=== PATIENT | male | born 1965 | race Caucasian/White ===

== ENCOUNTER 2017-11-21 13:18 | Inpatient (IN) | payer OTHER ==
[2017-11-21 14:30] VITALS: BMI 33.6
--- NOTE | 2017-11-21 15:03 | HP ---
CIWA Score - CIWA Score Nausea/Vomitin Muscle Tremors: 4-Moderate,w/Arms Extend Anxiety: 4-Mod. Anxious/Guarded Agitation: 3 Paroxysmal Sweats: 3 Orientation: 0-Oriented Tacttile Disturbances: 0-None Auditory Disturbances: 0-None Visual Disturbances: 0-None Headache: 0-None Present CIWA-Ar Total Score: 17 Admission ROS BHS - HPI Chief Complaint: "I want to get off the pills" Allergies/Adverse Reactions: Allergies Allergy/AdvReac Type Severity Reaction Status Date / Time No Known Allergies Allergy Verified 05/13/16 18:47 History of Present Illness: 52 y/o male with a long hx of substance use here today seeking detox from xanax, clonopin. On a methadone program - [facility] - on 90mg. Last time pt was here was 2005, states longer soberiety period has been 6 months. Hx of HTN, High cholesterol, Stroke x 2015 with residual weakness to the R side , ambulates with a cane, depression. Denies prior nor present S.I. Exam Limitations: Clinical Condition, Physical Impairment - Ebola screening Have you traveled outside of the country in the last 21 days: No Have you had contact with anyone from an Ebola affected area: No Have you been sick,other than usual withdrawal symptoms: No Do you have a fever: No - Review of Systems Constitutional: Unintentional Wgt. Loss EENT: reports: Blurred Vision (Diminished vision in the R eye s/p CVA), Dental Problems (Missing all teeth - Does not have his dentures on him) Respiratory: reports: Cough (Dry cough) Cardiac: reports: No Symptoms Reported, Palpitations GI: reports: Abdominal Distended (Non tender) : reports: No Symptoms Reported Musculoskeletal: reports: Other (Weak on R side, ambulates with a cane) Integumentary: reports: No Symptoms Reported Neuro: reports: Seizure (One time only maybe 20 years ago per pt), Weakness, Unsteady Gait Endocrine: reports: No Symptoms Reported Hematology: reports: No Symptoms Reported Psychiatric: reports: Orientated x3, Anxious Other Systems: Reviewed and Negative Patient History - Patient Medical History Hx Anemia: No Hx Asthma: No Hx Chronic Obstructive Pulmonary Disease (COPD): No Hx Cancer: No Hx Cardiac Disorders: No Hx Congestive Heart Failure: No Hx Hypertension: Yes (On meds, but does not remember the name) Hx Hypercholesterolemia: Yes (On med, he does not remember) Hx Pacemaker: No HX Cerebrovascular Accident: Yes (2016 with residual weakness) Hx Seizures: Yes (once 10 years ago) Hx Dementia: No Hx Diabetes: Yes Hx Gastrointestinal Disorders: No Hx Liver Disease: Yes (Hep C, states his titres are not detectable; never treated) Hx Genitourinary Disorders: No Hx Sexually Transmitted Disorders: No Hx Renal Disease (ESRD): No Hx Thyroid Disease: No Hx Human Immunodeficiency Virus (HIV): No (tested negative 2 years ago) Hx Hepatitis C: Yes (not treated) Hx Depression: Yes (On seroquel) Hx Suicide Attempt: No Hx Bipolar Disorder: No Hx Schizophrenia: No - Patient Surgical History Past Surgical History: Yes Other Surgical History: Spine surgery, unsure when - in the 's Anesthesia Reaction: No - PPD History Documented Results: Negative w/o proof PPD to be Administered?: Yes - Reproductive History Patient is a Female of Child Bearing Age (11 -55 yrs old): No - Smoking Cessation Smoking history: Current every day smoker Have you smoked in the past 12 months: Yes Aproximately how many cigarettes per day: 10 Hx Chewing Tobacco Use: No Initiated information on smoking cessation: Yes 'Breaking Loose' booklet given: 11/21/17 - Substance & Tx. History Hx Alcohol Use: No Substance Use Type: Tranquilizers Hx Substance Use Treatment: Yes - Substances Abused Alprazolam (Xanax) Route: Oral Frequency: Daily Amount used: 8mg (4 tablets) Age of first use: 22 Date of Last Use: 11/21/17 Benzodiazepine (Klonopin) Frequency: 1-2 times per week Amount used: 6 Age of first use: 16 Date of Last Use: 11/21/17 Family Disease History - Family Disease History Family History: Unremarkable Admission Physical Exam BHS - Vital Signs Vital Signs: Vital Signs - 24 hr 11/21/17 14:27 Temperature 97.6 F Pulse Rate 79 Respiratory 18 Rate Blood Pressure 136/87 - Physical General Appearance: Yes: Moderate Distress, Other (sleepy) HEENTM: Yes: Within Normal Limits, Other (Missing teeth; wears dentures but does not have it on him at this visit) Respiratory: Yes: No Respiratory Distress Neck: Yes: Within Normal Limits, No masses,lesions,Nodules, Trachea in good position Breast: Yes: Breast Exam Deferred Cardiology: Yes: Regular Rate Abdominal: Yes: Normal Bowel Sounds, Non Tender, Distended Genitourinary: Yes: Within Normal Limits Back: Yes: Normal Inspection Musculoskeletal: Yes: Muscle weakness, Other (ambulates with a walker) Extremities: Yes: Within Normal Limits, Normal Capillary Refill Neurological: Yes: Fully Oriented, Alert, Normal Response Integumentary: Yes: Dry, Warm Lymphatic: Yes: Within Normal Limits - Diagnostic (1) Walker as ambulation aid Current Visit: Yes Status: Acute (2) Nicotine dependence Current Visit: Yes Status: Acute (3) Pneumonia Current Visit: No Status: Acute Qualifiers: Pneumonia type: due to unspecified organism Laterality: bilateral Lung location: unspecified part of lung Qualified Code(s): J18.9 - Pneumonia, unspecified organism (4) HTN (hypertension) Current Visit: No Status: Chronic (5) Sedative, hypnotic or anxiolytic dependence with withdrawal, uncomplicated Current Visit: No Status: Chronic (6) Substance abuse Current Visit: No Status: Chronic Cleared for Admission [facility] - Detox or Rehab [facility] Level of Care: Medically Managed Detox Regimen/Protocol: Valium [facility] Breath Alcohol Content Breath Alcohol Content: 0 Urine Drug Screen - Results Drug Screen Negative: No Urine Drug Screen Results: THC-Marijuana, OPI-Opiates, BZO-Benzodiazepines, MTD- Methadone, TCA-Tricyclic Antidepress
[2017-11-21] MEDS ORDERED: guaiFENesin/D-METHORPHAN HB 10 ML UNIT-DOSE CUPS PO PRN (15:34)
[2017-11-21] MEDS ORDERED: ACETAMINOPHEN 325 MG TABLET (FP) PO PRN (15:34)
[2017-11-21] MEDS ORDERED: MAG HYDROX/AL HYDROX/SIMETH 30 ML UNIT-DOSE CUP PO PRN (15:34)
[2017-11-21] MEDS ORDERED: LOPERAMIDE HCL 2 MG CAPSULE PO PRN (15:34)
[2017-11-21] MEDS ORDERED: P-EPHED 60MG/TRIPROLIDI 2.5MG TABLET PO PRN (15:34)
[2017-11-21] MEDS ORDERED: MAGNESIUM CITRATE 300 ML BOTTLE PO PRN (15:34)
[2017-11-21] MEDS ORDERED: MENTHOL/PHENOL 1 EACH UD MM PRN (15:34)
[2017-11-21] MEDS ORDERED: IBUPROFEN 400 MG TABLET (FP) PO PRN (15:34)
[2017-11-21] MEDS ORDERED: MAGNESIUM HYDROX 2400MG/30ML ORAL SUSPENSION 30 ML CUP PO PRN (15:34)
[2017-11-21] MEDS ORDERED: NICOTINE POLACRILEX 2 MG GUM BC PRN (15:34)
--- NOTE | 2017-11-21 16:09 | PN ---
[facility] Progress Note Note: Pt stated he got today's dose at his methadone program earlier today. Was informed that his dose tomorrow is dependent on verification since the center was closed at the time of his admission here and DEE Alvares was unable to reach anyone at the center. Pt verbalized understanding
[2017-11-21] MEDS ORDERED: diazePAM 5 MG TABLET PO ONE (16:30)
[2017-11-21] MEDS: NICOTINE 14 MG/24 HOURS TOPICAL PATCH TD SCH (17:27)
[2017-11-21] MEDS ORDERED: MELATONIN 5 MG TABLETS PO PRN (22:00)
[2017-11-21] MEDS: THIAMINE HCL 100 MG TABLET (FP) PO SCH (22:11)
[2017-11-21] MEDS: diazePAM 5 MG TABLET PO SCH (22:11)
[2017-11-21 23:11] LABS: URINE APPEARANCE CLEAR; URINE BILIRUBIN NEGATIVE (<2.0 mg/dL); URINE COLOR AMBER; URINE GLUCOSE (UA) NEGATIVE (NEGATIVE); URINE KETONE NEGATIVE (NEGATIVE); URINE LEUK ESTERASE TRACE (NEGATIVE); URINE NITRITE NEGATIVE (NEGATIVE)
[2017-11-21 23:12] LABS: URINE PROTEIN 1+ (NEGATIVE)
[2017-11-21 23:18] LABS: URINE MUCUS FEW
[2017-11-22] MEDS: diazePAM 5 MG TABLET PO SCH ×3 (05:28→22:11)
[2017-11-22] MEDS ORDERED: METHADONE HCL 10 MG TABLET PO ONE (08:49)
[2017-11-22] MEDS ORDERED: METHADONE 80 MG, METHADONE 10 MG PO ONE (09:00)
[2017-11-22] MEDS ORDERED: METHADONE HCL 10 MG TABLET ONE (09:06)
[2017-11-22] MEDS ORDERED: METHADONE HCL 40 MG DISPERSABLE TABLET ONE (09:08)
--- NOTE | 2017-11-22 09:08 | CONSULT ---
[facility] Psychiatric Consult - Data Date of interview: 11/22/17 Admission source: [facility] Identifying data: Patient is a 52 year old single male, domiciled without kids, disabled and supported by SSI benefits. This is one of multiple admissions for patient. Pt. admitted to for opioid and benzodiazepine dependence. Substance Abuse History: Smoking Cessation. Smoking history: Current every day smoker. Have you smoked in the past 12 months: Yes. Aproximately how many cigarettes per day: 10. Hx Chewing Tobacco Use: No. Initiated information on smoking cessation: Yes. 'Breaking Loose' booklet given: 11/21/17. - Substance & Tx. History. Hx Alcohol Use: No. Substance Use Type: Tranquilizers. Hx Substance Use Treatment: Yes. - Substances Abused. Alprazolam (Xanax). Route: Oral. Frequency: Daily. Amount used: 8mg (4 tablets). Age of first use : 22. Date of Last Use: 11/21/17. Benzodiazepine (Klonopin). Frequency: 1- 2 times per week. Amount used: 6. Age of first use: 16. Date of Last Use: Medical History: hypertension, hypercholesterolemia, Hep C, spinal surgery Psychiatric History: Patient reports multiple psychiatric hospitalizations, most recently at [facility] five years ago. States all of his psychiatrich hospitalizations have occured at [facility]. [facility] is provided in the [place], [place]. Pt. reports taking seroquel 200mg qhs. Pt. denies h/o suicide attempt. Physical/Sexual Abuse/Trauma History: Denies. Mental Status Exam - Mental Status Exam Alert and Oriented to: Time, Place, Person Cognitive Function: Good Patient Appearance: Well Groomed Mood: Euthymic Affect: Mood Congruent Patient Behavior: Cooperative Speech Pattern: Appropriate Voice Loudness: Moderately Soft/Quiet Thought Process: Goal Oriented Thought Disorder: Not Present Hallucinations: Denies Suicidal Ideation: Denies Homicidal Ideation: Denies Insight/Judgement: Poor Sleep: Poorly Appetite: Fair Muscle strength/Tone: Normal Gait/Station: Other (Patient ambulates with a walker.) Psychiatric Findings - Problem List ([place] 1, 2,3) (1) Substance induced mood disorder Current Visit: Yes Status: Acute (2) Nicotine dependence Current Visit: Yes Status: Acute Qualifiers: Nicotine product type: cigarettes Substance use status: in withdrawal Qualified Code(s): F17.213 - Nicotine dependence, cigarettes, with withdrawal (3) Sedative, hypnotic or anxiolytic dependence with withdrawal, uncomplicated Current Visit: Yes Status: Acute (4) HTN (hypertension) Current Visit: Yes Status: Chronic Qualifiers: Hypertension type: essential hypertension Qualified Code(s): I10 - Essential (primary) hypertension (5) Methadone maintenance therapy patient Current Visit: Yes Status: Chronic (6) Walker as ambulation aid Current Visit: Yes Status: Chronic - Initial Treatment Plan Initial Treatment Plan: Psychoeducation provided. Detoxification in progress. Will order seroquel 150mg qhs. Benefits and side effects discussed. Verbal consent given. Will continue to monitor.
[2017-11-22] MEDS: diazePAM 5 MG TABLET PO PRN ×2 (09:50→17:24)
[2017-11-22] MEDS: NICOTINE 14 MG/24 HOURS TOPICAL PATCH TD SCH (09:51)
[2017-11-22] MEDS: PRENATAL VITAMINS W/ FOLIC ACID TABLET (FP) PO SCH (09:52)
[2017-11-22 10:12] LABS: HEMATOCRIT 40.1 % (35.4-49); HEMOGLOBIN 13.2 GM/dL (11.7-16.9); MCH 29.7 pg (25.7-33.7); MCHC 32.8 g/dl (32.0-35.9); MEAN CELL VOLUME 90.6 fl (80-96); MEAN PLT VOLUME 11.1 fl (7.5-11.1); PLATELET COUNT 168 K/MM3 (134-434); RBC 4.43 M/mm3 (4.00-5.60); RDW 14.7 % (11.9-15.9)
[2017-11-22 10:16] LABS: CHLORIDE 101 mmol/L (98-107); POTASSIUM 4.4 mmol/L (3.5-5.1); SODIUM 139 mmol/L (136-145)
[2017-11-22] MEDS ORDERED: cloNIDine HCL 0.1 MG TABLET PO ONE (10:17)
--- NOTE | 2017-11-22 10:50 | PN ---
S CIWA - CIWA Score Nausea/Vomitin-No Nausea/No Vomiting Muscle Tremors: 5 Anxiety: 5 Agitation: 4-Moderately Restless Paroxysmal Sweats: 1-Minimal Palms Moist Orientation: 0-Oriented Tacttile Disturbances: 0-None Auditory Disturbances: 0-None Visual Disturbances: 0-None Headache: 0-None Present CIWA-Ar Total Score: 15 BHS Progress Note (SOAP) Subjective: ANXIETY,IRRITABILITY,AGITATIONS. OOB AMBULATING WITH WALKER. PT REPORTS HE TAKES BP MED BUT DOES NOT REMEMBER THE NAMES. PT IS VERY AGITATED WHEN ASKED FOR ANY LEADS TO HELP STAFF FIND INFORMATION ABOUT HIS MEDS. Objective: 11/22/17 10:49 Vital Signs 11/22/17 11/22/17 05:47 10:09 Temperature 97.3 F L 97.2 F L Pulse Rate 47 L 54 L Respiratory 18 18 Rate Blood Pressure 127/79 168/95 Laboratory Tests 11/21/17 11/22/17 11/22/17 Unknown 07:00 07:00 WBC 8.0 D RBC 4.43 D Hgb 13.2 D Hct 40.1 D MCV 90.6 MCH 29.7 MCHC 32.8 RDW 14.7 Plt Count 168 D MPV 11.1 Sodium 139 Potassium 4.4 Chloride 101 Urine Color Annamaria Urine Appearance Clear Urine pH 5.0 D Ur Specific [place] 1.026 Urine Protein 1+ H Urine Glucose (UA) Negative Urine Ketones Negative Urine Blood Negative Urine Nitrite Negative Urine Bilirubin Negative Urine Urobilinogen 2.0 Ur Leukocyte Esterase Trace Urine WBC (Auto) 1 Urine RBC (Auto) None Urine Mucus Few OTHER LABSPENDING Assessment: 11/22/17 10:49 WITHDRAWAL SX Plan: CONTINUE DETOX CLONIDINE 0.1 MG PO ONCE GIVEN FOR ELEVATED BP
[2017-11-22 10:55] LABS: ALK PHOS 231 U/L (45-117); ANION GAP 9 (8-16); BILIRUBIN,TOTAL 0.4 mg/dL (0.2-1.0); BLOOD UREA NITROGEN 18 mg/dL (7-18); CALCIUM 9.2 mg/dL (8.5-10.1); CO2 29 mmol/L (21-32); CREATININE 0.9 mg/dL (0.7-1.3); GLUCOSE,RANDOM 119 mg/dL (74-106); SGOT/AST 150 U/L (15-37); SGPT/ALT 146 U/L (12-78); TOT PROT 7.3 g/dl (6.4-8.2)
[2017-11-22] MEDS ORDERED: cloNIDine HCL 0.1 MG TABLET PO PRN (13:09)
[2017-11-22] MEDS: amLODIPine BESYLATE 10 MG TABLET (FP) PO SCH (14:19)
--- NOTE | 2017-11-22 14:19 | EKG ---
Test Reason : Blood Pressure : / mmHG Vent. Rate : 055 BPM Atrial Rate : 055 BPM P-R Int : 136 ms QRS Dur : 090 ms QT Int : 440 ms P-R-T Axes : 030 040 045 degrees QTc Int : 420 ms SINUS BRADYCARDIA OTHERWISE NORMAL ECG WHEN COMPARED WITH ECG OF 17-MAY-2016 15:17, VENT. RATE HAS DECREASED BY 48 BPM Confirmed by MD Patel Edward ([id number]) on 11/22/2017 2:19:09 PM Referred By: Confirmed By:Boris Patel MD
[2017-11-22] MEDS: cloNIDine HCL 0.1 MG TABLET PO PRN (17:40)
[2017-11-22] MEDS: QUEtiapine FUMARATE 50 MG TABLET PO SCH (22:11)
[2017-11-22] MEDS: THIAMINE HCL 100 MG TABLET (FP) PO SCH (22:12)
[2017-11-23] MEDS ORDERED: METHADONE HCL 40 MG DISPERSABLE TABLET ONE (04:31)
[2017-11-23] MEDS ORDERED: METHADONE HCL 10 MG TABLET ONE (04:31)
[2017-11-23] MEDS: METHADONE 80 MG, METHADONE 10 MG PO SCH (05:37)
[2017-11-23] MEDS: diazePAM 5 MG TABLET PO PRN ×2 (05:37→14:52)
[2017-11-23] MEDS ORDERED: METHADONE HCL 10 MG TABLET PO SCH (06:00)
[2017-11-23] MEDS: amLODIPine BESYLATE 10 MG TABLET (FP) PO SCH (10:21)
[2017-11-23] MEDS: PRENATAL VITAMINS W/ FOLIC ACID TABLET (FP) PO SCH (10:21)
[2017-11-23] MEDS: diazePAM 5 MG TABLET PO SCH ×2 (10:21→22:09)
[2017-11-23] MEDS: NICOTINE 14 MG/24 HOURS TOPICAL PATCH TD SCH (10:21)
--- NOTE | 2017-11-23 11:02 | PN ---
S CIWA - CIWA Score Nausea/Vomitin-No Nausea/No Vomiting Muscle Tremors: 4-Moderate,w/Arms Extend Anxiety: 4-Mod. Anxious/Guarded Agitation: 4-Moderately Restless Paroxysmal Sweats: 1-Minimal Palms Moist Orientation: 0-Oriented Tacttile Disturbances: 0-None Auditory Disturbances: 0-None Visual Disturbances: 0-None Headache: 0-None Present CIWA-Ar Total Score: 13 BHS Progress Note (SOAP) Subjective: ANXIETY,SWEATS, IRRITABILITY. Objective: 11/23/17 11:01 Vital Signs 11/23/17 11/23/17 11/23/17 03:30 06:26 09:44 Temperature 97.2 F L 97.6 F Pulse Rate 52 L 59 L Respiratory 18 16 18 Rate Blood Pressure 104/64 107/59 Laboratory Tests 11/21/17 11/22/17 11/22/17 Unknown 07:00 07:00 WBC 8.0 D RBC 4.43 D Hgb 13.2 D Hct 40.1 D MCV 90.6 MCH 29.7 MCHC 32.8 RDW 14.7 Plt Count 168 D MPV 11.1 Sodium 139 Potassium 4.4 Chloride 101 Carbon Dioxide 29 Anion Gap 9 BUN 18 Creatinine 0.9 D Creat Clearance w eGFR > 60 Random Glucose 119 H Calcium 9.2 Total Bilirubin 0.4 AST 150 H D ALT 146 H Alkaline Phosphatase 231 H D Total Protein 7.3 D Albumin 4.0 D Urine Color Annamaria Urine Appearance Clear Urine pH 5.0 D Ur Specific [place] 1.026 Urine Protein 1+ H Urine Glucose (UA) Negative Urine Ketones Negative Urine Blood Negative Urine Nitrite Negative Urine Bilirubin Negative Urine Urobilinogen 2.0 Ur Leukocyte Esterase Trace Urine WBC (Auto) 1 Urine RBC (Auto) None Urine Mucus Few RPR Titer 11/22/17 07:00 WBC RBC Hgb Hct MCV MCH MCHC RDW Plt Count MPV Sodium Potassium Chloride Carbon Dioxide Anion Gap BUN Creatinine Creat Clearance w eGFR Random Glucose Calcium Total Bilirubin AST ALT Alkaline Phosphatase Total Protein Albumin Urine Color Urine Appearance Urine pH Ur Specific [place] Urine Protein Urine Glucose (UA) Urine Ketones Urine Blood Urine Nitrite Urine Bilirubin Urine Urobilinogen Ur Leukocyte Esterase Urine WBC (Auto) Urine RBC (Auto) Urine Mucus RPR Titer Nonreactive Assessment: 11/23/17 11:01 WITHDRAWAL SX Plan: CONTINUE DETOX
[2017-11-23] MEDS: QUEtiapine FUMARATE 50 MG TABLET PO SCH (22:09)
[2017-11-23] MEDS: THIAMINE HCL 100 MG TABLET (FP) PO SCH (22:09)
[2017-11-23] MEDS: cloNIDine HCL 0.1 MG TABLET PO PRN (22:12)
[2017-11-24] MEDS: diazePAM 5 MG TABLET PO PRN ×3 (00:44→13:05)
[2017-11-24] MEDS ORDERED: METHADONE HCL 10 MG TABLET ONE (02:44)
[2017-11-24] MEDS ORDERED: METHADONE HCL 40 MG DISPERSABLE TABLET ONE (02:44)
[2017-11-24] MEDS: METHADONE 80 MG, METHADONE 10 MG PO SCH (05:37)
[2017-11-24] MEDS: NICOTINE 14 MG/24 HOURS TOPICAL PATCH TD SCH (10:20)
[2017-11-24] MEDS: diazePAM 5 MG TABLET PO SCH ×2 (10:20→22:04)
[2017-11-24] MEDS: PRENATAL VITAMINS W/ FOLIC ACID TABLET (FP) PO SCH (10:20)
[2017-11-24] MEDS: amLODIPine BESYLATE 10 MG TABLET (FP) PO SCH (10:20)
--- NOTE | 2017-11-24 10:32 | PN ---
BHS Progress Note (SOAP) Subjective: PT C/O ANXIETY,LIGHTHEADED & CHILLS. SAW PT OOB ON HALLWAY AMBULATING WITH WALKER WITH STEADY GAIT Objective: 11/24/17 10:31 Vital Signs 11/24/17 11/24/17 06:22 09:25 Temperature 97.2 F L 98.4 F Pulse Rate 67 76 Respiratory 18 18 Rate Blood Pressure 123/82 120/72 Laboratory Tests 11/21/17 11/22/17 11/22/17 Unknown 07:00 07:00 WBC 8.0 D RBC 4.43 D Hgb 13.2 D Hct 40.1 D MCV 90.6 MCH 29.7 MCHC 32.8 RDW 14.7 Plt Count 168 D MPV 11.1 Sodium 139 Potassium 4.4 Chloride 101 Carbon Dioxide 29 Anion Gap 9 BUN 18 Creatinine 0.9 D Creat Clearance w eGFR > 60 Random Glucose 119 H Calcium 9.2 Total Bilirubin 0.4 AST 150 H D ALT 146 H Alkaline Phosphatase 231 H D Total Protein 7.3 D Albumin 4.0 D Urine Color Annamaria Urine Appearance Clear Urine pH 5.0 D Ur Specific [place] 1.026 Urine Protein 1+ H Urine Glucose (UA) Negative Urine Ketones Negative Urine Blood Negative Urine Nitrite Negative Urine Bilirubin Negative Urine Urobilinogen 2.0 Ur Leukocyte Esterase Trace Urine WBC (Auto) 1 Urine RBC (Auto) None Urine Mucus Few RPR Titer 11/22/17 07:00 WBC RBC Hgb Hct MCV MCH MCHC RDW Plt Count MPV Sodium Potassium Chloride Carbon Dioxide Anion Gap BUN Creatinine Creat Clearance w eGFR Random Glucose Calcium Total Bilirubin AST ALT Alkaline Phosphatase Total Protein Albumin Urine Color Urine Appearance Urine pH Ur Specific [place] Urine Protein Urine Glucose (UA) Urine Ketones Urine Blood Urine Nitrite Urine Bilirubin Urine Urobilinogen Ur Leukocyte Esterase Urine WBC (Auto) Urine RBC (Auto) Urine Mucus RPR Titer Nonreactive LIVER ENZYMES NOTED Assessment: 11/24/17 10:31 WITHDRAWAL SX Plan: CONTINUE DETOX REPEAT LFTS;INR INCREASE PO FLUIDS
[2017-11-24 14:12] LABS: ALBUMIN 3.9 g/dl (3.4-5.0); BILIRUBIN,DIRECT 0.2 mg/dL (0.0-0.2); BILIRUBIN,TOTAL 0.3 mg/dL (0.2-1.0); TOT PROT 7.1 g/dl (6.4-8.2)
[2017-11-24 14:24] LABS: INR 1.01 (0.82-1.09); PROTHROMBIN TIME (PATIENT) 11.4 SEC (9.7-13.0)
[2017-11-24] MEDS: hydrOXYzine PAMOATE 50 MG CAPSULE (FP) PO PRN ×2 (16:47→22:04)
[2017-11-24] MEDS: THIAMINE HCL 100 MG TABLET (FP) PO SCH (22:04)
[2017-11-24] MEDS: QUEtiapine FUMARATE 50 MG TABLET PO SCH (22:05)
[2017-11-25] MEDS ORDERED: METHADONE HCL 10 MG TABLET ONE (05:25)
[2017-11-25] MEDS ORDERED: METHADONE HCL 40 MG DISPERSABLE TABLET ONE (05:25)
[2017-11-25] MEDS: METHADONE 80 MG, METHADONE 10 MG PO SCH (05:26)
[2017-11-25 06:06] VITALS: BP 143/93; PULSE 80; TEMP 96.8
[2017-11-25] MEDS ORDERED: diazePAM 5 MG TABLET PO SCH (10:00)
--- NOTE | 2017-11-25 18:20 | PN ---
B[facility] Progress Note (SOAP) Subjective: Patient left Detox unit prior to time of arrival of SPINNING ROOM WORKER. Objective: 11/25/17 18:19 Vital Signs Temperature 96.8 F L 11/25/17 06:06 Pulse Rate 80 11/25/17 06:06 Respiratory Rate 18 11/25/17 06:06 Blood Pressure 143/93 11/25/17 06:06 O2 Sat by Pulse Oximetry (%) Laboratory Tests 11/21/17 11/22/17 11/22/17 Unknown 07:00 07:00 WBC 8.0 D RBC 4.43 D Hgb 13.2 D Hct 40.1 D MCV 90.6 MCH 29.7 MCHC 32.8 RDW 14.7 Plt Count 168 D MPV 11.1 PT with INR INR Sodium 139 Potassium 4.4 Chloride 101 Carbon Dioxide 29 Anion Gap 9 BUN 18 Creatinine 0.9 D Creat Clearance w eGFR > 60 Random Glucose 119 H Calcium 9.2 Total Bilirubin 0.4 Direct Bilirubin AST 150 H D ALT 146 H Alkaline Phosphatase 231 H D Total Protein 7.3 D Albumin 4.0 D Urine Color Annamaria Urine Appearance Clear Urine pH 5.0 D Ur Specific [place] 1.026 Urine Protein 1+ H Urine Glucose (UA) Negative Urine Ketones Negative Urine Blood Negative Urine Nitrite Negative Urine Bilirubin Negative Urine Urobilinogen 2.0 Ur Leukocyte Esterase Trace Urine WBC (Auto) 1 Urine RBC (Auto) None Urine Mucus Few RPR Titer 11/22/17 11/24/17 11/24/17 07:00 11:00 11:00 WBC RBC Hgb Hct MCV MCH MCHC RDW Plt Count MPV PT with INR 11.40 INR 1.01 Sodium Potassium Chloride Carbon Dioxide Anion Gap BUN Creatinine Creat Clearance w eGFR Random Glucose Calcium Total Bilirubin 0.3 D Direct Bilirubin 0.2 AST 418 H D ALT 438 H D Alkaline Phosphatase 262 H Total Protein 7.1 Albumin 3.9 Urine Color Urine Appearance Urine pH Ur Specific [place] Urine Protein Urine Glucose (UA) Urine Ketones Urine Blood Urine Nitrite Urine Bilirubin Urine Urobilinogen Ur Leukocyte Esterase Urine WBC (Auto) Urine RBC (Auto) Urine Mucus RPR Titer Nonreactive LABS NOTED. Assessment: 11/25/17 18:19 COMPLETION OF DETOX REGIMEN. Plan: PATIENT SCHEDULED FOR DISCHARGE FROM DETOX UNIT TODAY.
--- NOTE | 2017-11-25 18:23 | DS ---
[facility] Detox Discharge Summary Admission Date: 11/21/17 Discharge Date: 11/25/17 - History Present History: Sedative Dependence Additional Comments: PATIENT RETURNING TO [facility] ([place] FOR AFTERCARE. PATIENT ALSO ADVISED TO CONSIDER LOCAL 12-STEP/NA/AA OUTPATIENT SUPPORT GROUPS PROGRAMS FOR AFTERCARE. YESTERDAY, IN PREPARATION FOR DISCHARGE TODAY, PATIENT WAS ADVISED TO FOLLOW-UP WITH HIS HOOP DRIVING MACHINE OPERATOR HELPER DR. Jessica CARTY ([facility]) AFTER DISCHARGE FROM DETOX FOR GENERAL MEDICAL ASSESSMENT AND FOR ABNORMAL LIVER ENZYME LAB RESULTS DRAWN WHILE PATIENT WAS ADMITTED FOR DETOX. COPIES OF RESULTS ALL LABS DRAWN WHILE ADMITTED FOR DETOX GIVEN TO PATIENT PRIOR TO TIME OF DISCHARGE FROM DETOX UNIT. Pertinent Past History: HTN, Hypercholesterolemia, History of Hep C (untreated), Use of walker As Ambulatory Aid, History of Pneumonia, History of DM, History of CVA, History of Seizure, MMTP. - Physical Exam Results Vital Signs: Vital Signs Temperature 96.8 F L 11/25/17 06:06 Pulse Rate 80 11/25/17 06:06 Respiratory Rate 18 11/25/17 06:06 Blood Pressure 143/93 11/25/17 06:06 O2 Sat by Pulse Oximetry (%) Pertinent Admission Physical Exam Findings: WITHDRAWAL SYMPTOMS. Laboratory Tests 11/21/17 11/22/17 11/22/17 Unknown 07:00 07:00 WBC 8.0 D RBC 4.43 D Hgb 13.2 D Hct 40.1 D MCV 90.6 MCH 29.7 MCHC 32.8 RDW 14.7 Plt Count 168 D MPV 11.1 PT with INR INR Sodium 139 Potassium 4.4 Chloride 101 Carbon Dioxide 29 Anion Gap 9 BUN 18 Creatinine 0.9 D Creat Clearance w eGFR > 60 Random Glucose 119 H Calcium 9.2 Total Bilirubin 0.4 Direct Bilirubin AST 150 H D ALT 146 H Alkaline Phosphatase 231 H D Total Protein 7.3 D Albumin 4.0 D Urine Color Annamaria Urine Appearance Clear Urine pH 5.0 D Ur Specific [place] 1.026 Urine Protein 1+ H Urine Glucose (UA) Negative Urine Ketones Negative Urine Blood Negative Urine Nitrite Negative Urine Bilirubin Negative Urine Urobilinogen 2.0 Ur Leukocyte Esterase Trace Urine WBC (Auto) 1 Urine RBC (Auto) None Urine Mucus Few RPR Titer 11/22/17 11/24/17 11/24/17 07:00 11:00 11:00 WBC RBC Hgb Hct MCV MCH MCHC RDW Plt Count MPV PT with INR 11.40 INR 1.01 Sodium Potassium Chloride Carbon Dioxide Anion Gap BUN Creatinine Creat Clearance w eGFR Random Glucose Calcium Total Bilirubin 0.3 D Direct Bilirubin 0.2 AST 418 H D ALT 438 H D Alkaline Phosphatase 262 H Total Protein 7.1 Albumin 3.9 Urine Color Urine Appearance Urine pH Ur Specific [place] Urine Protein Urine Glucose (UA) Urine Ketones Urine Blood Urine Nitrite Urine Bilirubin Urine Urobilinogen Ur Leukocyte Esterase Urine WBC (Auto) Urine RBC (Auto) Urine Mucus RPR Titer Nonreactive LABS NOTED. - Treatment Hospital Course: Detox Protocol Followed, Detoxed Safely, Responded well, Discharged Condition Good Patient has Accepted a Rehab Referral to: PT. RETURNING TO [facility] ([place] - Medication Discharge Medications: Ambulatory Orders Quetiapine Fumarate [Seroquel -] 200 mg PO HS #30 tablet 05/25/16 - Diagnosis (1) Nicotine dependence Status: Acute Qualifiers: Nicotine product type: cigarettes Substance use status: in withdrawal Qualified Code(s): F17.213 - Nicotine dependence, cigarettes, with withdrawal (2) Pneumonia Status: Acute Qualifiers: Pneumonia type: due to unspecified organism Laterality: bilateral Lung location: unspecified part of lung Qualified Code(s): J18.9 - Pneumonia, unspecified organism (3) Sedative, hypnotic or anxiolytic dependence with withdrawal, uncomplicated Status: Acute (4) HTN (hypertension) Status: Chronic Qualifiers: Hypertension type: essential hypertension Qualified Code(s): I10 - Essential (primary) hypertension (5) Methadone maintenance therapy patient Status: Chronic (6) Substance induced mood disorder Status: Acute (7) Walker as ambulation aid Status: Chronic (8) Substance abuse Status: Chronic - AMA Did Patient Leave Against Medical Advice: No
== END 2017-11-25 06:35 | disposition home or self-care (01) | DRG 896 ==
LOC: YASAS 13:18 → Y3N 15:45
PROVIDERS: ADMIT Family Medicine Addiction Medicine; ATTEND Family Medicine Addiction Medicine
PROC: HZ2ZZZZ Detoxification Services for Substance Abuse Treatment (ICD-10-PCS; principal; 2017-11-21)
DX: F11.10 Opioid abuse, uncomplicated (principal); J18.9 Pneumonia, unspecified organism; I69.851 Hemiplegia and hemiparesis following other cerebrovascular disease affecting right dominant side; F13.230 Sedative, hypnotic or anxiolytic dependence with withdrawal, uncomplicated; F17.213 Nicotine dependence, cigarettes, with withdrawal; F19.24 Other psychoactive substance dependence with psychoactive substance-induced mood disorder; F32.9 Major depressive disorder, single episode, unspecified; B18.2 Chronic viral hepatitis C; I10 Essential (primary) hypertension; R26.89 Other abnormalities of gait and mobility; Z99.89 Dependence on other enabling machines and devices; E78.00 Pure hypercholesterolemia, unspecified; Z86.69 Personal history of other diseases of the nervous system and sense organs
CPT/HCPCS: 36415; 80053; 80076; 81003; 81015; 85027; 85610; 86593; 93005; 93010; J0735